=== PATIENT | male | born 1945 | race Caucasian/White ===

== ENCOUNTER 2018-04-30 10:40 | Day surgery (SDC) | payer OTHER ==
[~2018-04-30] VITALS: Ht 167.6 cm; Wt 90.7 kg
[~2018-04-30 10:40] MED LIST: ASPI1TAB PO; ATEN25TA PO; CELE1CAP4 PO; CENT1TAB PO; FISH120016 PO; FLOM0.4C39 PO; GABA-843 PO; GEMF600T5 PO; LANTINJ4 SC; LOSA25TA14 PO; METF500T13 PO; METHY25TA PO; NIAC500T55 PO; NS 1,000 ML IV ONE; PROBCAP4 PO; SERT-138 PO
[2018-04-30] MEDS ORDERED: LIDOCAINE 2% INJ 100 MG/5 ML SDV (FOR ANES.) As Ordered ONE (12:49)
[2018-04-30] MEDS ORDERED: PROPOFOL 200 MG/20 ML VIAL As Ordered ONE (12:49)
--- NOTE | 2018-04-30 13:37 | ROOR ---
Patient Name: Luis Miguel Stanley Procedure Date: 04/30/2018 1:08 PM Date of : 1945 Age: 73 Room: [facility] Gender: Male Note Status: Finalized Procedure: Colonoscopy Indications: High risk colon cancer surveillance: Personal history of colonic polyps Providers: DO Derrell Burgos MD: Kartik Hernández Md Requesting Provider: Medicines: Propofol per Anesthesia Complications: No immediate complications. Procedure: Pre-Anesthesia Assessment: - Prior to the procedure, a History and Physical was performed, and patient medications and allergies were reviewed. The patient is competent. The risks and benefits of the procedure and the sedation options and risks were discussed with the patient. All questions were answered and informed consent was obtained. Patient identification and proposed procedure were verified by the physician, the nurse, the anesthesiologist and the thermoplastic technician in the endoscopy suite. Mental Status Examination: alert and oriented. Airway Examination: normal oropharyngeal airway and neck mobility. Respiratory Examination: clear to auscultation. CV Examination: normal. Prophylactic Antibiotics: The patient does not require prophylactic antibiotics. Prior Anticoagulants: The patient has taken no previous anticoagulant or antiplatelet agents. ASA Grade Assessment: III - A patient with severe systemic disease. After reviewing the risks and benefits, the patient was deemed in satisfactory condition to undergo the procedure. The anesthesia plan was to use monitored anesthesia care (MAC). Immediately prior to administration of medications, the patient was re-assessed for adequacy to receive sedatives. The heart rate, respiratory rate, oxygen saturations, blood pressure, adequacy of pulmonary ventilation, and response to care were monitored throughout the procedure. The physical status of the patient was re-assessed after the procedure. The Colonoscope was introduced through the anus and advanced to the cecum, identified by appendiceal orifice and ileocecal valve. The colonoscopy was performed without difficulty. The patient tolerated the procedure well. Findings: Hemorrhoids were found on perianal exam. The perianal exam findings include non-thrombosed internal hemorrhoids and internal hemorrhoids that prolapse with straining, but require manual replacement into the anal canal (Grade III). Multiple small-mouthed diverticula were found in the sigmoid colon. Two carpet-like polyps were found in the sigmoid colon and cecum. The polyps were 10 mm in size. These polyps were removed with a hot snare. Polyp resection was incomplete, and the resected tissue was partially retrieved. Estimated blood loss was minimal. Impression: - Hemorrhoids found on perianal exam. - Non-thrombosed internal hemorrhoids and internal hemorrhoids that prolapse with straining, but require manual replacement into the anal canal (Grade III) found on perianal exam. - Diverticulosis in the sigmoid colon. - Two 10 mm polyps in the sigmoid colon and in the cecum, removed with a hot snare. Polyp resection was incomplete, and the resected tissue was partially retrieved. Recommendation: - Repeat colonoscopy in 3 - 5 years for surveillance after piecemeal polypectomy. - Patient has a contact number available for emergencies. The signs and symptoms of potential delayed complications were discussed with the patient. Return to normal activities tomorrow. Written discharge instructions were provided to the patient. - Telephone my office for pathology results in 1 week. Lucien Lo DO 04/30/2018 1:36:56 PM This report has been signed electronically. Number of Addenda: 0 Note Initiated On: 04/30/2018 1:08 PM Estimated Blood Loss: Estimated blood loss was minimal.
[2018-04-30 14:00] VITALS: BP 182/81
== END 2018-04-30 14:20 | disposition home or self-care (01) ==
LOC: M OPP 10:40
PROVIDERS: ATTEND Surgery
DX: Z12.11 Encounter for screening for malignant neoplasm of colon (principal); Z86.010 Personal history of colon polyps; K64.2 Third degree hemorrhoids; D12.5 Benign neoplasm of sigmoid colon; D12.0 Benign neoplasm of cecum; K57.30 Diverticulosis of large intestine without perforation or abscess without bleeding; I10 Essential (primary) hypertension; F32.9 Major depressive disorder, single episode, unspecified; F41.9 Anxiety disorder, unspecified; F43.10 Post-traumatic stress disorder, unspecified; M54.2 Cervicalgia; J44.9 Chronic obstructive pulmonary disease, unspecified; N40.0 Benign prostatic hyperplasia without lower urinary tract symptoms; Z79.4 Long term (current) use of insulin; Z79.899 Other long term (current) drug therapy; Z87.891 Personal history of nicotine dependence

== ENCOUNTER 2018-11-10 19:42 | Emergency (ER) | payer OTHER, MEDICARE ==
[~2018-11-10] VITALS: Ht 167.6 cm; Wt 90.9 kg
[~2018-11-10 19:42] MED LIST changes: -ASPI1TAB PO; +ASPI81TA26 PO; -NIAC500T55 PO; +NIAC500T9 PO; -NS 1,000 ML IV ONE
[2018-11-10] MEDS ORDERED: IPRATROPIUM 0.5MG/ALBUTEROL 2.5MG INH SOL UD 3ML (DUONEB)(J7620) NEB ONE (20:15)
[2018-11-10 20:38] LABS: BASO # 0.1 10^3/uL (0.0-0.2); BASO % 0.6 % (0.0-1.0); EOS # 0.6 10^3/uL (0.0-0.50); EOS % 4.2 % (0.0-3.0); HEMATOCRIT 41.2 % (42.0-52.0); HEMOGLOBIN 12.9 g/dl (13.5-17.5); LYMPH # 1.4 10^3/uL (1.5-4.5); LYMPH % 10.5 % (24.0-44.0); MEAN CORPUSCULAR HEMOGLOBIN 27.2 pg (27.0-33.0); MEAN CORPUSCULAR HGB CONC 31.3 g/dl (32.0-36.5); MEAN CORPUSCULAR VOLUME 86.7 fl (80.0-96.0); MONO # 1.1 10^3/uL (0.0-0.8); MONO % 7.9 % (0.0-5.0); NEUTROPHILS # 10.4 10^3/uL (1.8-7.7); NEUTROPHILS % 76.1 % (36.0-66.0); PLATELET COUNT, AUTOMATED 306 10^3/uL (150-450); RED BLOOD COUNT 4.75 10^6/uL (4.30-6.10); WHITE BLOOD COUNT 13.7 10^3/uL (4.0-10.0)
[2018-11-10 20:57] LABS: CALCIUM LEVEL 8.6 MG/DL (8.8-10.2); CREATININE FOR GFR 1.33 MG/DL (0.70-1.30); GLOMERULAR FILTRATION RATE 56.1 (>42); POTASSIUM SERUM 4.7 MEQ/L (3.5-5.1)
[2018-11-10] MEDS ORDERED: LEVA750T7 PO (21:58)
[2018-11-10] MEDS ORDERED: PRED20TA PO (21:58)
[2018-11-10] MEDS ORDERED: ALBUTEROL 90 MCG/ACT 8GM HFA INHALER INH ONE (22:00)
[2018-11-10] MEDS ORDERED: LevoFLOXacin 750 MG TABLET PO ONE (22:00)
[2018-11-10] MEDS ORDERED: methylPREDNISolone INJ 40 MG/1 ML VIAL (J2920) IV ONE (22:00)
[2018-11-10 22:15] VITALS: BP 142/65
--- NOTE | 2018-11-11 06:16 | REP ---
Clinical: Cough and dyspnea. Technique: PA and lateral. Comparison: None. Findings: Mediastinum and cardiac silhouette are normal. Lung carcamo suggest diffuse chronic interstitial changes and superimposed vague subtle bilateral interstitial infiltrates (right greater than left) cannot definitively be excluded. No effusion. No pneumothorax. Skeletal structures intact. Impression: Cannot exclude a subtle vague interstitial infiltrate/pneumonia. Electronically Signed by Miguel Stewart MD 11/11/2018 06:08 A
--- NOTE | 2018-11-11 15:34 | ECGEPIP ---
[facility] - ED Test Date: 2018-11-10 Pat Name: ALEXANDRA LOGAN Department: Room: - Gender: Male Tattooer: abhishek : 1945 Requested By: DENISHA Jeronimo Order Number: [id number] Reading MD: Santa Finney Measurements Intervals [place] Rate: 52 P: 30 WA: 174 QRS: 44 QRSD: 94 T: 69 QT: 416 QTc: 389 Interpretive Statements SINUS BRADYCARDIA NSTTW abnormalities INFERIOR CLINICAL CORRELATION No prior Electronically Signed on 11-11-2018 15:33:33 EDT by Sanat Finney
== END 2018-11-10 22:33 | disposition home or self-care (01) ==
LOC: M ED 19:42
DX: J20.9 Acute bronchitis, unspecified (principal); R00.1 Bradycardia, unspecified; E11.9 Type 2 diabetes mellitus without complications; I10 Essential (primary) hypertension; Z87.891 Personal history of nicotine dependence; Z79.899 Other long term (current) drug therapy; Z79.4 Long term (current) use of insulin; Z79.82 Long term (current) use of aspirin
CPT/HCPCS: 71046; 80048; 85025; 87040; 93005; 93041; 94760; 96374; 99285; J2920

== ENCOUNTER → 2020-07-15 | Outpatient (CLI) | payer MEDICARE ==
[~2020-07-15] MED LIST changes: +GABA-282 PO; -GABA-843 PO; +LEVA750T7 PO; -NIAC500T9 PO; +NIAC500T93 PO; +PRED20TA PO
== END ==
LOC: M LABSMTC 12:01
PROVIDERS: ATTEND Family Medicine
DX: Z11.52 Encounter for screening for COVID-19 (principal)
CPT/HCPCS: C9803; U0003

== ENCOUNTER 2021-10-31 13:06 | Emergency (ER) | payer OTHER, MEDICARE ==
[~2021-10-31] VITALS: Ht 167.6 cm; Wt 80.6 kg
[~2021-10-31 13:06] MED LIST changes: +LOSA25TA13 PO; -LOSA25TA14 PO
[2021-10-31 13:08] VITALS: BP 138/60
== END 2021-10-31 15:30 | disposition left against medical advice (07) ==
LOC: M ED 13:06
DX: Z53.21 Procedure and treatment not carried out due to patient leaving prior to being seen by health care provider (principal)

== ENCOUNTER → 2023-12-05 | Outpatient (CLI) | payer OTHER, MEDICARE | LOC: M PLAIMG 10:32 | PROVIDERS: ATTEND Internal Medicine | DX: M54.16 Radiculopathy, lumbar region (principal); M47.896 Other spondylosis, lumbar region; M99.63 Osseous and subluxation stenosis of intervertebral foramina of lumbar region ==

== ENCOUNTER → 2024-06-03 | Outpatient (CLI) | payer OTHER ==
[~2024-06-03] MED LIST changes: +GABA-1172 PO; -GABA-282 PO
== END ==
LOC: M SOG 08:02
PROVIDERS: ATTEND Physician Assistant
DX: M25.532 Pain in left wrist (principal); Z53.9 Procedure and treatment not carried out, unspecified reason

== ENCOUNTER → 2024-08-03 | Outpatient (CLI) | payer MEDICARE, OTHER | LOC: M PLAIMG 06:46 | PROVIDERS: ATTEND Physician Assistant | DX: M43.06 Spondylolysis, lumbar region (principal) ==